=== PATIENT | male | born 1940 | race Hispanic/Latino ===

== ENCOUNTER 2017-03-09 07:12 | Day surgery (SDC) | payer MEDICARE, BC ==
[2017-03-01 13:42] VITALS: BMI 19.3
[2017-03-09] MEDS ORDERED: Propofol 10 mg/ml Inj (20 ML) ONE (08:41)
[2017-03-09 09:32] VITALS: TEMP 98.3
[2017-03-09 09:36] VITALS: O2SAT 100
[2017-03-09 10:59] VITALS: BP 124/61; PULSE 60; RESP 17
== END 2017-03-09 10:25 | disposition hospice, home (50) ==
LOC: C.ENDO 07:12
PROVIDERS: ATTEND Internal Medicine Gastroenterology
DX: D12.2 Benign neoplasm of ascending colon (principal); D12.3 Benign neoplasm of transverse colon; D12.4 Benign neoplasm of descending colon; K64.8 Other hemorrhoids; K57.90 Diverticulosis of intestine, part unspecified, without perforation or abscess without bleeding
CPT/HCPCS: 45388; 88305; J2704